=== PATIENT | female | born 1990 | race Caucasian/White ===

== ENCOUNTER 2018-04-04 18:12 | Emergency (ER) | payer MEDICAID, OTHER ==
[~2018-04-04] VITALS: Ht 134.6 cm; Wt 52.0 kg
[~2018-04-04 18:12] MED LIST: FLUT1DIS3
[2018-04-04 19:57] VITALS: BP 120/75
[2018-04-04 22:23] LABS: CLARITY URINE TURBID (CLEAR); COLOR URINE YELLOW (YELLOW); KETONES URINE NEGATIVE (NEGATIVE); LEUKOCYTE ESTERASE URINE 2+ (NEGATIVE); NITRITE URINE NEGATIVE (NEGATIVE); OCCULT BLOOD URINE 2+ (NEGATIVE); PH URINE >=9.0 (4.5-8.0); PROTEIN URINE NEGATIVE (NEGATIVE); SPECIFIC GRAVITY URINE 1.016 (1.005-1.030)
== END 2018-04-04 23:15 | disposition left against medical advice (07) ==
LOC: ER 18:24
DX: R10.9 Unspecified abdominal pain (principal)
CPT/HCPCS: 81003; 81025; 99283

== ENCOUNTER 2025-02-04 17:06 | Inpatient (IN) | payer MEDICAID ==
[~2025-02-04] VITALS: Ht 152.4 cm; Wt 65.8 kg
[2025-02-04] MEDS: METHYLPREDNISOLONE SOD SUCC 125MG/2ML (ACT-O-VIAL) IV STA (17:45)
[2025-02-04] MEDS: MAGNESIUM 2 G PREMIX 50 ML IV ONE (17:45)
[2025-02-04] MEDS: IPRATROPIUM BROMIDE (0.02%) 0.5MG/2.5ML NEB HHN STA (17:49)
[2025-02-04] MEDS: ALBUTEROL (0.083%) 2.5MG/3ML NEB HHN SCH (17:50)
[2025-02-04 17:54] VITALS: PULSE 106; RESP 16; O2SAT 97
[2025-02-04 17:55] LABS: HEMATOCRIT. 36.6 % (36.0-48.0); HEMOGLOBIN. 12.3 g/dL (12.0-16.0); MEAN CORPUSCULAR HEMOGLOBIN 33.4 pg (28.0-32.0); MEAN CORPUSCULAR HGB CONC 33.7 g/dL (31.0-37.0); MEAN PLATELET VOLUME 8.3 fl (7.4-10.4); PLATELET 456 x1000/uL (130-400); RED CELL DISTRIBUTION WIDTH 13.9 % (11.6-14.6); WHITE BLOOD COUNT 17.5 x1000/uL (4.5-11.0)
[2025-02-04 18:00] LABS: CHLORIDE 101 mEq/L (98-107); POTASSIUM 3.3 mEq/L (3.5-5.1); SODIUM 139 mEq/L (136-145)
[2025-02-04 18:01] LABS: CARBON DIOXIDE 28 mEq/L (21-32)
[2025-02-04 18:06] LABS: CREATININE 0.6 mg/dL (0.6-1.0)
[2025-02-04 18:07] LABS: GLUCOSE 101 mg/dL (70-105); UREA NITROGEN BLOOD 7 mg/dL (9-23)
[2025-02-04 18:10] LABS: DIFFERENTIAL COMMENT 1
[2025-02-04 18:14] LABS: HCG SCREEN NEGATIVE
[2025-02-04 18:17] LABS: TROPONIN I HIGH SENSITIVITY < 4 ng/L (3.0-34)
[2025-02-04] MEDS ORDERED: AZITHROMYCIN 500MG/250ML 250 ML IV SCH (18:30)
[2025-02-04] MEDS: CEFTRIAXONE 2GM/50ML 50 ML IV ONE (19:28)
[2025-02-04 20:00] VITALS: BP 110/63; PULSE 90; RESP 17; TEMP 37; O2SAT 93
[2025-02-04] MEDS ORDERED: IPRATROPIUM/ALBUTEROL 0.5-3(2.5)MG/3ML NEB HHN PRN (20:00)
[2025-02-04] MEDS ORDERED: ONDANSETRON HCL 4MG/2ML INJ IV PRN (20:00)
[2025-02-04] MEDS: AZITHROMYCIN 500MG/250ML 250 ML IV SCH (20:20)
[2025-02-04 20:26] LABS: PLATELET ESTIMATE INCREASED
[2025-02-04 22:00] VITALS: BP 110/63; PULSE 90; RESP 17; TEMP 37
[2025-02-04] MEDS: POTASSIUM CHLORIDE 20MEQ TABLET SR PO NR (23:11)
[2025-02-05] VITALS: BP 103/61; PULSE 91; RESP 16; TEMP 36.3; O2SAT 90
[2025-02-05] MEDS ORDERED: INFLUENZA VACCINE 05/PF 0.5 ML SYRINGE IM ONE (00:30)
[2025-02-05 01:20] LABS: TROPONIN I HIGH SENSITIVITY < 4 ng/L (3.0-34)
[2025-02-05 04:00] VITALS: BP 116/77; PULSE 77; RESP 18; TEMP 35.8; O2SAT 99
[2025-02-05 06:22] LABS: HEMATOCRIT. 36.3 % (36.0-48.0); HEMOGLOBIN. 12.1 g/dL (12.0-16.0); MEAN CORPUSCULAR HEMOGLOBIN 32.9 pg (28.0-32.0); MEAN CORPUSCULAR HGB CONC 33.4 g/dL (31.0-37.0); MEAN CORPUSCULAR VOLUME 98.6 fL (81.0-99.0); MEAN PLATELET VOLUME 8.4 fl (7.4-10.4); PLATELET 445 x1000/uL (130-400); RED BLOOD CELL COUNT 3.69 mill/uL (4.2-5.4); RED CELL DISTRIBUTION WIDTH 13.8 % (11.6-14.6); WHITE BLOOD COUNT 14.2 x1000/uL (4.5-11.0)
[2025-02-05 06:27] LABS: TROPONIN I HIGH SENSITIVITY < 4 ng/L (3.0-34)
[2025-02-05 06:28] LABS: CALCIUM 9.7 mg/dL (8.7-10.4); CARBON DIOXIDE 26 mEq/L (21-32); CHLORIDE 102 mEq/L (98-107); DIFFERENTIAL COMMENT 1; POTASSIUM 4.8 mEq/L (3.5-5.1); SODIUM 137 mEq/L (136-145)
[2025-02-05 06:35] LABS: CREATININE 0.6 mg/dL (0.6-1.0); GLUCOSE 140 mg/dL (70-105); T4 FREE 1.21 ng/dL (0.89-1.76); UREA NITROGEN BLOOD 13 mg/dL (9-23)
[2025-02-05 08:00] VITALS: BP 110/82; PULSE 75; RESP 18; TEMP 36.4; O2SAT 96
[2025-02-05] MEDS ORDERED: IBUPROFEN 400MG TABLET PO PRN (09:00)
[2025-02-05] MEDS: PANTOPRAZOLE SODIUM 40 MG/VIAL IV SCH (11:24)
[2025-02-05] MEDS: GUAIFENESIN/DM 600MG/30MG ER TAB 12HR PO SCH (11:24)
[2025-02-05] MEDS: METHYLPREDNISOLONE SOD SUCC 125MG/2ML (ACT-O-VIAL) IV SCH (11:28)
[2025-02-05] MEDS: METHYLPREDNISOLONE SOD SUCC 125MG/2ML (ACT-O-VIAL) ONE (11:29)
[2025-02-05 12:00] VITALS: BP 103/61; PULSE 82; RESP 18; TEMP 36.6; O2SAT 95
[2025-02-05 16:00] VITALS: BP 116/72; PULSE 91; RESP 16; TEMP 36.3; O2SAT 90
[2025-02-05 16:05] LABS: PLATELET ESTIMATE INCREASED
[2025-02-05] MEDS: CEFTRIAXONE 1GM/50ML 50 ML IV SCH (19:07)
[2025-02-05 20:00] VITALS: BP 111/58; PULSE 79; RESP 15; TEMP 37.1; O2SAT 92
[2025-02-05] MEDS ORDERED: AZITHROMYCIN 500MG/250ML 250 ML IV SCH (20:00)
[2025-02-05] MEDS: AZITHROMYCIN 500MG/250ML 250 ML IV SCH (23:22)
[2025-02-06] VITALS: BP 114/72; PULSE 74; RESP 18; TEMP 37.2; O2SAT 98
[2025-02-06 04:00] VITALS: BP 119/58; PULSE 74; RESP 17; TEMP 36.5; O2SAT 97
[2025-02-06 06:50] LABS: CHLORIDE 101 mEq/L (98-107); POTASSIUM 4.6 mEq/L (3.5-5.1); SODIUM 137 mEq/L (136-145)
[2025-02-06 06:51] LABS: CALCIUM 9.1 mg/dL (8.7-10.4); CARBON DIOXIDE 29 mEq/L (21-32)
[2025-02-06 06:56] LABS: CREATININE 0.6 mg/dL (0.6-1.0); GLUCOSE 142 mg/dL (70-105); UREA NITROGEN BLOOD 16 mg/dL (9-23)
[2025-02-06 06:58] LABS: PHOSPHORUS 4.4 mg/dL (2.5-4.9)
[2025-02-06 07:04] LABS: HEMATOCRIT. 37.5 % (36.0-48.0); HEMOGLOBIN. 12.4 g/dL (12.0-16.0); MEAN CORPUSCULAR HEMOGLOBIN 32.6 pg (28.0-32.0); MEAN CORPUSCULAR VOLUME 98.8 fL (81.0-99.0); MEAN PLATELET VOLUME 8.4 fl (7.4-10.4); PLATELET 505 x1000/uL (130-400); RED CELL DISTRIBUTION WIDTH 13.7 % (11.6-14.6); WHITE BLOOD COUNT 19.3 x1000/uL (4.5-11.0)
[2025-02-06 07:34] LABS: DIFFERENTIAL COMMENT 1
[2025-02-06 09:19] VITALS: PULSE 107; RESP 20; O2SAT 93
[2025-02-06] MEDS: IPRATROPIUM/ALBUTEROL 0.5-3(2.5)MG/3ML NEB HHN SCH (09:19)
[2025-02-06] MEDS: BUDESONIDE 0.5MG/2ML NEB HHN SCH (09:19)
[2025-02-06 12:37] VITALS: BP 94/52; PULSE 75; RESP 20; TEMP 35.8; O2SAT 94
[2025-02-06] MEDS ORDERED: AZIT500T8 MT (12:46)
[2025-02-06 14:39] LABS: PLATELET ESTIMATE INCREASED
[2025-02-06 16:00] VITALS: BP 109/56; PULSE 73; RESP 20; TEMP 36.3; O2SAT 95
[2025-02-06] MEDS: METHYLPREDNISOLONE SOD SUCC 125MG/2ML (ACT-O-VIAL) IV NR (18:14)
[2025-02-06 20:00] VITALS: BP 106/65; PULSE 73; RESP 19; TEMP 36.6; O2SAT 97
[2025-02-06] MEDS: METHYLPREDNISOLONE SOD SUCC 125MG/2ML (ACT-O-VIAL) IV SCH (22:31)
[2025-02-07] VITALS (7 sets, daily range): BP systolic 98–121; BP diastolic 59–84; PULSE 70–96; RESP 16–18; TEMP 36.1–36.5; O2SAT 95–98
[2025-02-07] MEDS: GUAIFENESIN/DM 600MG/30MG ER TAB 12HR PO SCH (09:49)
[2025-02-07] MEDS ORDERED: P20 PO (11:34)
[2025-02-07] MEDS ORDERED: P20 MT (11:34)
[2025-02-07] MEDS ORDERED: ALBU18HF2 IH (11:34)
[2025-02-07] MEDS ORDERED: AZIT250T12 MT (11:34)
[2025-02-07] MEDS ORDERED: MOME13HF11 INH (11:34)
== END 2025-02-07 12:23 | disposition home or self-care (01) | DRG 113 ==
LOC: ER 17:06 → 5WST 21:25 → 7EST 02-06 18:29
PROVIDERS: ADMIT Internal Medicine; ATTEND Internal Medicine
DX: J06.9 Acute upper respiratory infection, unspecified (principal); J96.01 Acute respiratory failure with hypoxia; J45.901 Unspecified asthma with (acute) exacerbation; D75.838 Other thrombocytosis; E05.90 Thyrotoxicosis, unspecified without thyrotoxic crisis or storm; Z87.891 Personal history of nicotine dependence; Z79.899 Other long term (current) drug therapy
CPT/HCPCS: 36415; 71045; 80048; 83605; 83735; 83880; 84100; 84145; 84439; 84443; 84484; 84703; 85025; 93005; 94070; 94640; 94664; 98960; 99291; J0456; J0696; J2470; J2919; J3475; J7626